=== PATIENT | male | born 1940 | race Caucasian/White ===

== ENCOUNTER 2022-05-14 16:34 | Emergency (ER) | payer MEDICARE, SELFPAY ==
[2022-05-14] VITALS (25 sets, daily range): BP systolic 116–150; BP diastolic 73–111; PULSE 78–135; RESP 14–25; TEMP 36.2; O2SAT 98–100
--- NOTE | ~2022-05-14 | XR_ITS ---
EXAMINATION: XR chest 2V DATE: 05/14/2022 17:25 INDICATION: Weakness. Loss of appetite. TECHNIQUE: Frontal and lateral views of the chest were obtained. COMPARISON: None. FINDINGS: There is mild scarring in left midlung zone. There is no pneumonia, pleural effusion, or pn eumothorax. The heart size is normal. Median sternotomy wires and mediastinal surgical clips are seen , likely from prior coronary artery bypass grafting. IMPRESSION: 1. Mild scarring in left midlung zone. Reviewed, dictated and finalized at location A.
--- NOTE | 2022-05-14 16:51 | ECG_ITS ---
Measurements Intervals [place] Rate: 109 P: 96 LA: 196 QRS: -29 QRSD: 124 T: 89 QT: 360 QTc: 485 Interpretive Statements SINUS TACHYCARDIA ATRIAL AND VENTRICULAR PREMATURE COMPLEXES LEFT BUNDLE BRANCH BLOCK BASELINE ARTIFACT- I, II, AVR, AVL, AVF ABNORMAL ECG Electronically Signed On 05-14-2022 20:24:19 CDT by Frankie Sadler D.O.
[2022-05-14 17:40] LABS: Basophils Percent Auto 0.4 % (0.2-1.2); Eosinophils Absolute Auto 0.2 K/mm3 (0-0.3); Eosinophils Percent Auto 2.2 % (0-4.4); Hematocrit 42.1 % (42.0-52.0); Immature Granulocyte Absolute 0.06 K/mm3 (0.00-0.031); Immature Granulocyte Percent A 0.9 % (0-0.5); Lymphocytes Absolute Auto 1.64 K/mm3 (0.9-3.2); Lymphocytes Percent Auto 23.6 % (18.3-44.2); Mean Corpuscular HGB Conc 33.3 g/dl (32-36); Mean Corpuscular Hemoglobin 27.5 pg (26-34); Mean Corpuscular Volume 82.5 fl (80-100); Mean Platelet Volume 9.2 fl (7.4-10.4); Monocytes Absolute Auto 0.4 K/mm3 (0.1-0.6); Neutrophils Absolute Auto 4.7 K/mm3 (1.3-6.7); Neutrophils Percent Auto 66.9 % (45.5-73.1); Platelet Count Result 201 k/mm3 (150-375); Red Cell Distribution Width 15.6 % (11.5-14.5)
[2022-05-14 17:48] LABS: Alanine Aminotransferase 55 U/L (6-50); Albumin Level 3.5 g/dL (3.5-5.1); Alkaline Phosphatase 96 U/L (38-126); Anion Gap 10 mmol/L (8-16); Aspartate Amino Transferase 49 U/L (17-59); Bilirubin,Total 0.8 mg/dL (0.2-1.3); Blood Urea Nitrogen 16 mg/dL (9-20); Calcium 8.4 mg/dL (8.4-10.2); Carbon Dioxide 20 mmol/L (22-30); Chloride 104 mmol/L (98-107); Estimated CRCL calculation 51 ml/min; Estimated Glomerular Filt Rate > 60; Glucose 146 mg/dL (65-110); Potassium 3.2 mmol/L (3.4-5.0); Sodium 134 mmol/L (137-145)
--- NOTE | 2022-05-14 20:33 | ED.WEAKNESS ---
HPI - Weakness General Chief complaint: Weakness Stated complaint: Weakness, Lost Weight, Radiation Therapy Time Seen by Provider: 05/14/22 20:15 Source: patient and family Mode of arrival: ambulatory Limitations: no limitations History of Present Illness HPI Narrative: 81 years old white male came to the emergency room from home with his and son complaining of general weakness and poor appetite for the last few weeks. Patient had a new diagnosis of pancreatic cancer October 2021, last radiation therapy was 2 weeks ago, status post 15 radiation therapy so far. Patient been on Ensure and other supplements. Denies any fever, chills, nausea, vomiting, diarrhea, abdominal pain or constipation. Patient's monitor showing A. fib with RVR running between 90 and 135. Patient denies any chest pain or shortness of breath or palpitation. Patient used to be on metoprolol 50 mg once a day which is stopped by his physician 6 weeks ago for low blood pressure. Related Data Allergies Allergy/AdvReac Type Severity Reaction Status Date / Time quinapril Allergy Unknown RASH Verified 05/14/22 20:41 Review of Systems Review of Systems: All systems reviewed & are unremarkable except as noted in HPI and below Course Course Emergency Course: Work-up today showed weakness secondary to poor p.o. intake, hypokalemia and atrial fibrillation with heart rate running between 90 and 135. 40 mEq potassium ordered, Lopressor 5 mg IV every 5 minutes x 2 given, patient heart rate was still A. fib below 100 bpm for 30 minutes prior to discharge. Patient is comfortable to go home. Does not want to stay in the hospital. My plan to advise patient to restart metoprolol at a lower dose 25 mg twice daily instead of 50 once a day and to call his family physician for further evaluation. Vital Signs Vital signs: Vital Signs Temperature 36.2 C L 05/14/22 16:46 Pulse Rate 101 H 05/14/22 16:46 Respiratory Rate 20 05/14/22 16:46 Blood Pressure 116/73 05/14/22 16:46 Pulse Oximetry 98 05/14/22 16:46 Oxygen Delivery Room Air 05/14/22 16:46 Temperature 36.2 C L 05/14/22 16:46 Pulse Rate 126 H 05/14/22 20:14 Respiratory Rate 21 H 05/14/22 20:14 Blood Pressure 146/104 H 07/21/22 20:14 Pulse Oximetry 100 05/14/22 20:14 Oxygen Delivery Room Air 05/14/22 16:46 MDM - Weakness Lab Data Result diagrams: 05/14/22 17:33 05/14/22 17:33 Labs: Lab Results 05/14/22 05/14/22 05/14/22 Range/Units 17:33 17:33 20:56 WBC 7.0 (4.5-10.0) K/mm3 RBC 5.10 (4.6-6.20) M/mm3 Hgb 14.0 (14.0-18.0) g/dL Hct 42.1 (42.0-52.0) % MCV 82.5 (80-100) fl MCH 27.5 (26-34) pg MCHC 33.3 (32-36) g/dl RDW 15.6 H (11.5-14.5) % Plt Count 201 (150-375) k/mm3 MPV 9.2 (7.4-10.4) fl Immature Gran % (Auto) 0.9 H (0-0.5) % Neut % (Auto) 66.9 (45.5-73.1) % Lymph % (Auto) 23.6 (18.3-44.2) % [place] % (Auto) 6.0 (2.6-8.5) % Eos % (Auto) 2.2 (0-4.4) % Baso % (Auto) 0.4 (0.2-1.2) % Lymph # (Auto) 1.64 (0.9-3.2) K/mm3 [place] # (Auto) 0.4 (0.1-0.6) K/mm3 Eos # (Auto) 0.2 (0-0.3) K/mm3 Baso # (Auto) 0.0 (0.0-0.1) K/mm3 Abs Immat Gran (auto) 0.06 H (0.00-0.031) K/mm3 Absolute Neuts (auto) 4.7 (1.3-6.7) K/mm3 Absolute Nucleated RBC 0.0 (0.0-0.012) K/mm3 Nucleated RBC % 0.0 (0.0-0.2) % Sodium 134 L (137-145) mmol/L Potassium 3.2 L (3.4-5.0) mmol/L Chloride 104 (98-107) mmol/L Carbon Dioxide 20 L (22-30) mmol/L Anion Gap 10 (8-16) mmol/L BUN 16 (9-20) mg/dL Creatinine 0.90 (0.7-1.3) mg/dL Estim Creat Clear Calc 51 ml/min Estimated GFR > 60 (59 - ) Glucose 146 H (65-110) mg/dL Calcium 8.4 (8.4-10.2) mg/dL Total Bilirubin 0.8 (0.2-1.3) mg/dL AST 49 (17-59) U/L ALT 55 H (6-50) U/L Alkaline Phosphatase 96 (38-126) U/L Total Protein 6.0 L (6.3-8.2) g/dL Albumin
[2022-05-14] MEDS: SODIUM CHLORIDE 0.9% IV 1,000 ML 999 ML IV CONT (20:41)
[2022-05-14 21:03] LABS: Appearance Urine Clear (Clear); Bilirubin Urine Negative (Negative); Blood Urine Negative (Negative); Color Urine Yellow (Yellow); Glucose Urine UA Negative (Negative); Ketones Urine 1+ mg/dL (Negative); Leukocyte Esterase Ur Negative LEU/UL (Negative); Nitrate Urine Negative (Negative); Protein Urine 2+ mg/dL (Negative); Specific Grav Ur 1.015 (1.001-1.035); Urobilinogen Urine 0.2 mg/dL (<2.0); pH Urine 5.5 (5.0-9.0)
[2022-05-14 21:09] LABS: Add Urine Microscopic? YES; Bacteria Urine Trace /hpf; Mucus Urine Rare /lpf; RBC Urine 0-2 /hpf (0-2); Squamous Epithelial Cell Urine Rare /hpf (Few); WBC Urine 0-3 /hpf
--- NOTE | 2022-05-14 21:42 | ECG_ITS ---
Measurements Intervals [place] Rate: 92 P: MT: 0 QRS: -35 QRSD: 131 T: 90 QT: 399 QTc: 494 Interpretive Statements WANDERING PACEMAKER LEFT AXIS DEVIATION LEFT BUNDLE BRANCH BLOCK ATRIAL AND VENTRICULAR PREMATURE COMPLEXES ABNORMAL ECG Electronically Signed On 05-15-2022 8:46:07 CDT by Frankie Sadler D.O.
[2022-05-14] MEDS: METOPROLOL TARTRATE INJ 5 MG/5 ML VIAL IV PUSH ×2 (22:17→22:26)
[2022-05-14 23:04] LABS: Troponin I 0.013 ng/mL (0.000-0.034)
== END 2022-05-14 22:50 | disposition home or self-care (01) ==
PROVIDERS: Emergency Provider Emergency Medicine; PCP Internal Medicine
DX: R53.1 Weakness (principal); I48.91 Unspecified atrial fibrillation; E87.6 Hypokalemia; C25.9 Malignant neoplasm of pancreas, unspecified; R00.0 Tachycardia, unspecified; I49.1 Atrial premature depolarization; I49.3 Ventricular premature depolarization; I44.7 Left bundle-branch block, unspecified
CPT/HCPCS: 36415; 71046; 80053; 81001; 84484; 85025; 93005; 96361; 96374; 99284; A9270; J7030